=== PATIENT | male | born 1995 | race African-American/Black ===

== ENCOUNTER 2016-09-02 15:12 | Emergency (ER) | payer OTHER ==
[~2016-09-02] VITALS: Ht 167.6 cm; Wt 70.3 kg
[2016-09-02 15:12] VITALS: BP_SYST 148
[2016-09-02 15:49] LABS: EOSINOPHILS % (AUTO) 0.3 % (0.0-4.0); LYMPHOCYTES # (AUTO) 2.3 K/uL (1.0-5.5); MEAN CORPUSCULAR HEMOGLOBIN 27 pg (27-31); MONOCYTES # (AUTO) 0.6 K/uL (0.0-1.0)
[2016-09-02 15:51] LABS: BASOPHILS # (AUTO) 0.3 K/uL (0.0-0.2); BASOPHILS % (AUTO) 2.4 % (0.0-2.0); HEMATOCRIT 45.3 % (36-54); HEMOGLOBIN 14.7 g/dL (14.0-18.0); LYMPHOCYTES % (AUTO) 18.3 % (20.5-51.5); MEAN CORPUSCULAR HGB CONC 32 % (32-36); MEAN CORPUSCULAR VOLUME 84 fL (79.0-98.0); MONOCYTES % (AUTO) 4.4 % (1.7-9.3); NEUTROPHILS # (AUTO) 9.6 K/uL (1.8-7.7); NEUTROPHILS % (AUTO) 74.6 % (40.0-70.0); PLATELET COUNT (AUTO) 369 K/uL (130-430); RED BLOOD CELL COUNT(AUTO) 5.38 MIL/uL (4.2-6.2); RED CELL DISTRIBUTION WIDTH 12.1 % (9.0-15.0); WHITE BLOOD COUNT (AUTO) 12.8 K/uL (4.8-10.8)
[2016-09-02 15:58] LABS: ANION GAP 9 (5-15); CHLORIDE 104 mmol/L (98-107); CREATININE 1.11 mg/dL (0.55-1.30); GLUCOSE 96 mg/dL (70-99); POTASSIUM 3.9 mmol/L (3.5-5.1); SODIUM SERUM 138 mmol/L (136-145); UREA NITROGEN, BLOOD 18 mg/dL (8-21)
[2016-09-02 16:03] LABS: PROTHROMBIN TIME 11.3 SECS (9.5-12.5)
[2016-09-02 16:09] LABS: GFR AFRICAN AMERICAN 108 mL/min (>90)
[2016-09-02 16:12] LABS: ALANINE AMINOTRANSFERASE 28 U/L (12-78); ALBUMIN 4.6 g/dL (3.4-4.8); ASPARTATE AMINOTRANSFERASE 49 U/L (10-37); CREATINE KINASE, TOTAL 2900 U/L (39-308); TOTAL BILIRUBIN 0.4 mg/dL (0.0-1.0); TOTAL PROTEIN, SERUM 8.2 g/dL (6.4-8.3)
[2016-09-02 16:13] LABS: ALCOHOL, BLOOD < 3 mg/dL (<10)
[2016-09-02 16:43] LABS: CKMB RELATIVE INDEX 0.1 (0.0-2.9); CREATINE KINASE MB 3.5 ng/mL (0-3.6)
[2016-09-02] MEDS ORDERED: ETOMIDATE 20 MG/ 10 ML VIAL (AMIDATE) IVP ONE (17:15)
[2016-09-02] MEDS ORDERED: NACL 0.9% 1,000 ML IV ONE (17:15)
[2016-09-02 17:47] LABS: BARBITURATE, URINE NEGATIVE (NEG <=200); BENZODIAZEPINE, URINE NEGATIVE (NEG <=150); CANNABINOID, URINE NEGATIVE (NEG <=50); COCAINE, URINE NEGATIVE (NEG <=150); METHAMPHETAMINES SCREEN,URINE NEGATIVE (NEG <=500); OPIATE, URINE NEGATIVE (NEG <=100); PHENCYCLIDINE SCREEN,URINE NEGATIVE (NEG <=25); UR TRICYCLIC ANTIDEPRESSANTS NEGATIVE (NEG <=300); URINE AMPHETAMINE NEGATIVE (NEG <=500); URINE METHADONE NEGATIVE (NEG <=200); URINE OXYCODONE SCREEN NEGATIVE (NEG <=100); URINE PROPOXYPHENE SCREEN NEGATIVE (NEG <=300)
[2016-09-02 18:20] VITALS: BP_SYST 132
== END 2016-09-02 18:20 | disposition home or self-care (01) ==
LOC: SED 15:12
DX: F23 Brief psychotic disorder (principal); R41.82 Altered mental status, unspecified
CPT/HCPCS: 36415; 70450; 71010; 80053; 80307; 82550; 82553; 84484; 85025; 85610; 85730; 87040; 93005; 99285; G0482